=== PATIENT | male | born 2000 | race Hispanic/Latino ===

== ENCOUNTER 2024-08-21 11:38 | Emergency (ER) | payer SELFPAY ==
[~2024-08-21] VITALS: Ht 170.2 cm; Wt 77.0 kg
[2024-08-21 11:45] VITALS: BP 131/66
[2024-08-21] MEDS ORDERED: METHOCARBAMOL 500 MG/TAB PO ONE (12:20)
[2024-08-21] MEDS ORDERED: NAPROXEN 250 MG/TAB PO ONE (12:20)
[2024-08-21] MEDS ORDERED: NAPROXEN500 MG PO (12:58)
[2024-08-21] MEDS ORDERED: METHOCARBAMOL500 MG PO (12:58)
[2024-08-21 13:04] VITALS: BP 115/63
[2024-08-21 13:10] VITALS: BP 115/63
== END 2024-08-21 13:05 | disposition home or self-care (01) | DRG 563 ==
LOC: ED 11:38
PROC: 0HQCXZZ Repair Left Upper Arm Skin, External Approach (ICD-10-PCS; principal; 2024-08-21)
DX: S46.911A Strain of unspecified muscle, fascia and tendon at shoulder and upper arm level, right arm, initial encounter (principal); S41.112A Laceration without foreign body of left upper arm, initial encounter; W11.XXXA Fall on and from ladder, initial encounter